=== PATIENT | male | born 1965 | race African-American/Black ===

== ENCOUNTER 2016-05-24 19:52 | Emergency (ER) | payer OTHER ==
--- NOTE | 2016-05-24 20:29 | ERRECORD ---
[facility] EMERGENCY RECORD HPI NAUSEA/VOMITING/DIARRHEA (20:18 BPIC) CHIEF COMPLAINT: Patient presents for evaluation of vomiting. HISTORIAN: History provided by patient, Diabetic patient who has been trying to change his diet since New Year's Day, was eating a piece of chicken and felt like it got stuck on the way down to his stomach. he immediately vomited all of his food. this happened 3 times to him today. he is jeff to tolerate liquids and has no pain or symptoms currently. His girlfriend was concerned that he might have twisted intestines and told him to come to the ER. ROS (20:20 BPIC) CONSTITUTIONAL: Negative constitutional review of systems, Historian denies chills, denies fever. EYES: Negative eye review of systems. ENT: Negative ears, nose, throat review of systems. CARDIOVASCULAR: Negative cardiovascular review of systems, Historian denies chest pain, denies palpitations. RESPIRATORY: Negative respiratory review of systems, Historian denies cough, denies shortness of breath. GI: Negative gastrointestinal review of systems, Historian denies abdominal pain, denies constipation, denies diarrhea. MUSCULOSKELETAL: Negative musculoskeletal review of systems. SKIN: Negative skin review of systems. NEUROLOGIC: Negative neurologic review of systems. ENDOCRINE: Negative endocrine review of systems. HEMO/LYMPHATIC: Normal hematologic/lymphatic system review. PSYCHIATRIC: Negative psychiatric review of systems. NOTES: All other ROS is negative except as listed in HPI. PAST MEDICAL HISTORY MEDICAL HISTORY: Notes: VERIFIED 12-30-15, Past medical history includes history of diabetes, Past medical history includes endocrine disease, hypothyroidism, Past medical history includes history of hyperlipidemia, Past medical history includes history of hypertension. VERIFIED 04/22/14. (20:02 SFRE) MALE SURGICAL HISTORY: VERIFIED 12-30-15, Patient has no surgical history. VERIFIED 04/22/14. (20:02 SFRE) SOCIAL HISTORY: Social History includes VERIFIED 12-30-15, Patient drinks socially, rarely, Patient denies drug use, Patient has no smoking history, Patient drinks socially, rarely, Patient denies drug use, Patient has no smoking history. (20:02 SFRE) NOTES: I have reviewed and agree with the PMH/PSxH/FamHx/SocHx obtained by the nurse. (20:20 BPIC) KNOWN ALLERGIES No Known Drug Allergies No Known Drug Allergy (Unconfirmed) &a-1R&a+25V*p+0X*v6183T*c202B*c15G*c2P*p-0X&a-25V&a+1R Name: Adan Burch : 1965 M51 MedRec: [id number] AcctNum: [id number] Prepared: SunMay 24, 2016 20:33 by Interface Page 1 of 3 pMD [facility] EMERGENCY RECORD CURRENT MEDICATIONS (20:01 SFRE) lisinopril: TABLET : Strength - 20 mg : ORAL Patient Dose: 40 mg once a day. metFORMIN: TABLET : Strength - 1,000 mg : ORAL Patient Dose: 2 times a day. Lipitor: TABLET : Strength - 40 mg : ORAL Patient Dose: 40 once a day. levothyroxine: TABLET : Strength - 100 mcg : ORAL Patient Dose: 125 mcg Oral once a day (in the morning). VITAL SIGNS (19:56 SFRE) VITAL SIGNS: BP: 136/72, Pulse: 77 (Regular), Resp: 18 (Non-Labored), Temp: 97.7 (Tympanic), Pain: 0, O2 sat: 98 on Room Air, Time: 05/24/2016 19:56. PHYSICAL EXAM (20:20 BPIC) CONSTITUTIONAL: Vital signs reviewed, Patient appears non toxic, Patient alert and oriented to person, place and time, Pt is in no apparent distress. HEAD: Head exam included findings of head atraumatic, normocephalic. EYES: Eye exam included findings of eyelids normal to inspection, Pupils equally round and reactive to light, Extraocular muscles intact. ENT: ENT exam normal, Nose exam normal, no nasal deformity, no bleeding from nares, Pharynx exam normal, Mouth exam normal, mucous membranes moist. NECK: Neck exam included findings of normal range of motion, Trachea midline. RESPIRATORY CHEST: Respiratory and chest exam normal, Breath sounds clear, No wheezing, No rales, Chest exam included findings of chest movement symmetrical, Chest expansion equal. CARDIOVASCULAR: Cardiovascular assessment normal, Cardiovascular exam included findings of heart rate regular rate and rhythm, Heart sounds normal. ABDOMEN MALE: Abdominal exam included findings of abdomen nontender, Bowel sounds normal, no mass, no pulsatile masses, no peritoneal signs, no rigidity, no guarding, no rebound. BACK: Back exam included findings of normal inspection, range of motion normal, no costovertebral angle tenderness. UPPER EXTREMITY: Upper extremity exam included findings of inspection normal, Range of motion normal. LOWER EXTREMITY: Lower extremity exam included findings of inspection normal, Range of motion normal. NEURO: Neuro exam findings include patient oriented to person, place and time, Speech normal, no focal motor deficits, no focal &a-1R&a+25V*p+0X*m3520P*c202B*c15G*c2P*p-0X&a-25V&a+1R Name: Adan Burch : 1965 M51 MedRec: [id number] AcctNum: [id number] Prepared: SunMay 24, 2016 20:33 by Interface Page 2 of 3 pMD [facility] EMERGENCY RECORD sensory deficits. SKIN: Skin exam included findings of skin warm, dry, and normal in color. LYMPHATIC: Lymphatic exam normal. PSYCHIATRIC: Psychiatric exam included findings of patient oriented to person place and time, Normal affect. DOCTOR NOTES (20:21 BPIC) TEXT: pt with possible esophageal stricture, however he is tolerating fluids well. pt has agreed to switch to soft mechanical diet and follow up with GI. I discussed the diagnosis with the patient prior to discharge. All questions were answered. There is no indication for admission currently and the patient will follow up with a primary care physician. Any pertinent labs or imaging were reviewed and dicussed with the patient. If any new or emergent symptoms occur, the patient will return to the emergency department. PROBLEM LIST No recorded problems DIAGNOSIS (20:14 BPIC) FINAL: PRIMARY: Nausea with vomiting, ADDITIONAL: possible esophageal stricture. PRESCRIPTION (20:14 BPIC) Zofran ODT: TABLET,DISINTEGRATING : 8 mg : ORAL : Quantity: 8 Unit: mg Route: ORAL Schedule: every 6 hours PRN Dispense: 20 Unit: tab(s) May substitute. Refills: No Refills . NOTES: No Refills. DISPOSITION PATIENT: Disposition Type: Discharge, Disposition: *Discharge Home, Condition: Good. (20:14 BPIC) Patient left the department. (20:26 SFRE) Gallagher: BPRAY=MD Jillian, Marvin SFRE=KRISTINA Parrish, Myrtle &a-1R&a+25V*p+0X*x2989W*c202B*c15G*c2P*p-0X&a-25V&a+1R Name: Adan Burch : 1965 M51 MedRec: [id number] AcctNum: [id number] Prepared: Mino[place] May 24, 2016 20:33 by Interface Page 3 of 3 pMD MTDD
--- NOTE | 2016-05-24 20:36 | PICIS ---
[facility] EMERGENCY RECORD TRIAGE (SunMay 24, 2016 20:00 SFRE) TRIAGE NOTES: REPORTS DIFFICULTY DIGESTING FOOD. STATES HE TAKES 2 BITES AND CANNOT KEEP 3RD BITE DOWN. (SunMay 24, 2016 20:00 SFRE) PATIENT: NAME: Adan Burch, AGE: 51, GENDER: male, : Sun1965, TIME OF GREET: SunMay 24, 2016 19:53, PREFERRED LANGUAGE: Telugu, ETHNICITY: Not or , ECODE BILLING MAP: [facility], SSN: [id number], Zip Code: [address], KG WEIGHT: 109.32, , , PERSON ID: [id number], PCP: MD WARNER IMELDA. (SunMay 24, 2016 20:00 SFRE) PHONE: . (20:22) COMPLAINT: VOMITING. (SunMay 24, 2016 20:00 SFRE) ADMISSION: URGENCY: 4 Non Urgent, ADMISSION SOURCE: Home, TRANSPORT: Walk-in, BED: ED -05. (SunMay 24, 2016 20:00 SFRE) PAIN: No complaint of pain. (20:02 SFRE) SIRS SCORING: Heart Rate 55-109 (0), Temp range 96.8-101.1 (0), respiratory rate 12-24 (0), Mental Status altered: no (0). (20:02 SFRE) TRIAGE SCREENING: Patient denies suicidal ideation, Patient denies presence of domestic violence. (20:02 SFRE) PROVIDERS: TRIAGE NURSE: Myrtle Parrish RN. (SunMay 24, 2016 20:00 SFRE) VITAL SIGNS: BP 136/72, Pulse 77, (Regular), Resp 18, (Non-Labored), Temp 97.7, (Tympanic), Pain 0, O2 Sat 98, on Room Air, Time 05/24/2016 19:56. (19:56 SFRE) PREVIOUS VISIT ALLERGIES: No Known Drug Allergies. (SunMay 24, 2016 20:00 SFRE) No Known Drug Allergies. (20:02 SFRE) KNOWN ALLERGIES No Known Drug Allergies No Known Drug Allergy (Unconfirmed) CURRENT MEDICATIONS (20:01 SFRE) lisinopril: TABLET : Strength - 20 mg : ORAL Patient Dose: 40 mg once a day. metFORMIN: TABLET : Strength - 1,000 mg : ORAL Patient Dose: 2 times a day. Lipitor: TABLET : Strength - 40 mg : ORAL Patient Dose: 40 once a day. levothyroxine: TABLET : Strength - 100 mcg : ORAL Patient Dose: 125 mcg Oral once a day (in the morning). VITAL SIGNS (19:56 SFRE) VITAL SIGNS: BP: 136/72, Pulse: 77 (Regular), Resp: 18 &a-1R&a+25V*p+0X*x2820U*c202B*c15G*c2P*p-0X&a-25V&a+1R Name: Adan Burch : 1965 M51 MedRec: [id number] AcctNum: [id number] Prepared: SunMay 24, 2016 20:40 by Interface Page 1 of 5 pMD [facility] EMERGENCY RECORD (Non-Labored), Temp: 97.7 (Tympanic), Pain: 0, O2 sat: 98 on Room Air, Time: 05/24/2016 19:56. NURSING ASSESSMENT: ABDOMEN (20:06 SFRE) CONSTITUTIONAL: Patient arrives ambulatory, Gait steady, History obtained from patient, Patient appears comfortable, Patient cooperative, Patient alert, Oriented to person, place and time, Skin warm, Skin dry, Skin normal in color, Mucous membranes pink, Mucous membranes moist, Patient is well-groomed, Patient complains of vomiting. PAIN: DENIES PAIN. REPORTS DISCOMFORT ONLY WHEN HE VOMITS, Patient rates pain as 0 out of 10. ABDOMEN: Abdomen assessment findings include abdomen symmetrical, Abdomen soft, Associated with nausea, Associated with vomiting, history of vomiting, vomiting food, no associated diarrhea, Notes: REPORTS HE HAS A DIFFICULT TIME GETTING FOOD TO GO DOWN. "FEELS LIKE IT'S STUCK IN MY STOMACH". GENITOURINARY MALE: no associated urinary complaints. SAFETY: Side rails up, Cart/Stretcher in lowest position, Family at bedside, Call light within reach, Hospital ID band on. NURSING PROCEDURE: DISCHARGE NOTE (20:23 SFRE) DISCHARGE: Patient discharged to home, ambulating without assistance, driving self, accompanied by //partner, Summary of Care printed/ provided, Patient requested and was provided an electronic copy of Discharge Instructions, Discharge instructions given to patient, Simple or moderate discharge teaching performed, by KRISTINA GALDAMEZ, F/U WITH PCP. RX DIRECTED. RETURN TO ED NEEDED FOR NEW/CONCERNING OR WORSENING SYMPTOMS., Prescriptions given and instructions on side effects given, Name of prescription(s) given: Talha COMER person(s) verbalized understanding of discharge instructions and follow-up care. NURSING PROCEDURE: NURSE NOTES (20:08 SFRE) NURSES NOTES: Patient examined by physician. HPI NAUSEA/VOMITING/DIARRHEA (20:18 BPIC) CHIEF COMPLAINT: Patient presents for evaluation of vomiting. HISTORIAN: History provided by patient, Diabetic patient who has been trying to change his diet since New 's Day, was eating a piece of chicken and felt like it got stuck on the way down to his stomach. he immediately vomited all of his food. this happened 3 times to him today. he is jeff to tolerate liquids and has no pain or symptoms currently. His girlfriend was concerned that he might have twisted intestines and told him to come to the ER. ROS (20:20 BPIC) CONSTITUTIONAL: Negative constitutional review of systems, &a-1R&a+25V*p+0X*o8733H*c202B*c15G*c2P*p-0X&a-25V&a+1R Name: Adan Burch : 1965 M51 MedRec: [id number] AcctNum: [id number] Prepared: SunMay 24, 2016 20:40 by Interface Page 2 of 5 pMD [facility] EMERGENCY RECORD Historian denies chills, denies fever. EYES: Negative eye review of systems. ENT: Negative ears, nose, throat review of systems. CARDIOVASCULAR: Negative cardiovascular review of systems, Historian denies chest pain, denies palpitations. RESPIRATORY: Negative respiratory review of systems, Historian denies cough, denies shortness of breath. GI: Negative gastrointestinal review of systems, Historian denies abdominal pain, denies constipation, denies diarrhea. MUSCULOSKELETAL: Negative musculoskeletal review of systems. SKIN: Negative skin review of systems. NEUROLOGIC: Negative neurologic review of systems. ENDOCRINE: Negative endocrine review of systems. HEMO/LYMPHATIC: Normal hematologic/lymphatic system review. PSYCHIATRIC: Negative psychiatric review of systems. NOTES: All other ROS is negative except as listed in HPI. PAST MEDICAL HISTORY MEDICAL HISTORY: Notes: VERIFIED 12-30-15, Past medical history includes history of diabetes, Past medical history includes endocrine disease, hypothyroidism, Past medical history includes history of hyperlipidemia, Past medical history includes history of hypertension. VERIFIED 04/22/14. (20:02 SFRE) MALE SURGICAL HISTORY: VERIFIED 12-30-15, Patient has no surgical history. VERIFIED 04/22/14. (20:02 SFRE) SOCIAL HISTORY: Social History includes VERIFIED 12-30-15, Patient drinks socially, rarely, Patient denies drug use, Patient has no smoking history, Patient drinks socially, rarely, Patient denies drug use, Patient has no smoking history. (20:02 SFRE) NOTES: I have reviewed and agree with the PMH/PSxH/FamHx/SocHx obtained by the nurse. (20:20 BPIC) PHYSICAL EXAM (20:20 BPIC) CONSTITUTIONAL: Vital signs reviewed, Patient appears non toxic, Patient alert and oriented to person, place and time, Pt is in no apparent distress. HEAD: Head exam included findings of head atraumatic, normocephalic. EYES: Eye exam included findings of eyelids normal to inspection, Pupils equally round and reactive to light, Extraocular muscles intact. ENT: ENT exam normal, Nose exam normal, no nasal deformity, no bleeding from nares, Pharynx exam normal, Mouth exam normal, mucous membranes moist. NECK: Neck exam included findings of normal range of motion, Trachea midline. RESPIRATORY CHEST: Respiratory and chest exam normal, Breath sounds clear, No wheezing, No rales, Chest exam included findings of chest movement symmetrical, Chest expansion equal. &a-1R&a+25V*p+0X*a5222K*c202B*c15G*c2P*p-0X&a-25V&a+1R Name: Adan Burch : 1965 M51 MedRec: [id number] AcctNum: [id number] Prepared: SunMay 24, 2016 20:40 by Interface Page 3 of 5 pMD [facility] EMERGENCY RECORD CARDIOVASCULAR: Cardiovascular assessment normal, Cardiovascular exam included findings of heart rate regular rate and rhythm, Heart sounds normal. ABDOMEN MALE: Abdominal exam included findings of abdomen nontender, Bowel sounds normal, no mass, no pulsatile masses, no peritoneal signs, no rigidity, no guarding, no rebound. BACK: Back exam included findings of normal inspection, range of motion normal, no costovertebral angle tenderness. UPPER EXTREMITY: Upper extremity exam included findings of inspection normal, Range of motion normal. LOWER EXTREMITY: Lower extremity exam included findings of inspection normal, Range of motion normal. NEURO: Neuro exam findings include patient oriented to person, place and time, Speech normal, no focal motor deficits, no focal sensory deficits. SKIN: Skin exam included findings of skin warm, dry, and normal in color. LYMPHATIC: Lymphatic exam normal. PSYCHIATRIC: Psychiatric exam included findings of patient oriented to person place and time, Normal affect. EVENTS TRANSFER: Triage to Emergency Main ED -05. (SunMay 24, 2016 20:00 SFRE) Removed from Emergency Main ED -05. (20:26 SFRE) DOCTOR NOTES (20:21 BPIC) TEXT: pt with possible esophageal stricture, however he is tolerating fluids well. pt has agreed to switch to soft mechanical diet and follow up with GI. I discussed the diagnosis with the patient prior to discharge. All questions were answered. There is no indication for admission currently and the patient will follow up with a primary care physician. Any pertinent labs or imaging were reviewed and dicussed with the patient. If any new or emergent symptoms occur, the patient will return to the emergency department. PROBLEM LIST No recorded problems DIAGNOSIS (20:14 BPIC) FINAL: PRIMARY: Nausea with vomiting, ADDITIONAL: possible esophageal stricture. DISPOSITION PATIENT: Disposition Type: Discharge, Disposition: *Discharge Home, Condition: Good. (20:14 BPIC) Patient left the department. (20:26 SFRE) INSTRUCTION (20:15 BPIC) &a-1R&a+25V*p+0X*d6399A*c202B*c15G*c2P*p-0X&a-25V&a+1R Name: Adan Burch : 1965 M51 MedRec: [id number] AcctNum: [id number] Prepared: SunMay 24, 2016 20:40 by Interface Page 4 of 5 pMD [facility] EMERGENCY RECORD DISCHARGE: DIET, VOMITING OR DIARRHEA [6YR-ADULT]. FOLLOWUP: MD ALANA, KAY, [facility], [address] [place], [place] [id number], [phone], MD Bradley, Bruce, Gastroenterology, [address] [place] [address], [phone]. SPECIAL: Please follow up with your physician in the next 2-3 days and with GI as needed for a possible esophageal stricture. Return to the Emergency Room with any worsening of your symptoms or other emergent concerns. Thank you for choosing [facility] Emergency Department for your care today, and God Bless You!. PRESCRIPTION (20:14 BPIC) Zofran ODT: TABLET,DISINTEGRATING : 8 mg : ORAL : Quantity: 8 Unit: mg Route: ORAL Schedule: every 6 hours PRN Dispense: 20 Unit: tab(s) May substitute. Refills: No Refills . NOTES: No Refills. IMAGING (20:24 SFRE) *DISCHARGE INSTRUCTIONS RECEIPT: Image captured from scanner. *SUPPLY CHARGE SHEET: Image captured from scanner. ADMIN DIGITAL SIGNATURE: MD Walsh Bryan. (20:22 BPIC) KRISTINA Parrish, Myrtle. (20:25 SFRE) Gallagher: BPIC=MD Walsh Bryan SFRE=KRISTINA Parrish, Myrtle &a-1R&a+25V*p+0X*g6508X*c202B*c15G*c2P*p-0X&a-25V&a+1R Name: Adan Burch : 1965 M51 MedRec: [id number] AcctNum: [id number] Prepared: SunMay 24, 2016 20:40 by Interface Page 5 of 5 pMD MTDD
== END 2016-05-24 20:23 | disposition home or self-care (01) ==
LOC: MADERS 19:52
DX: R11.2 Nausea with vomiting, unspecified (principal); E03.9 Hypothyroidism, unspecified; E11.9 Type 2 diabetes mellitus without complications; E78.5 Hyperlipidemia, unspecified; I10 Essential (primary) hypertension
CPT/HCPCS: 99283

== ENCOUNTER 2017-04-03 06:05 | Emergency (ER) | payer BC, OTHER ==
[2017-04-03] MEDS ORDERED: Ibuprofen 600 MG TAB ONE (07:14)
== END 2017-04-03 07:15 | disposition home or self-care (01) ==
LOC: MADERS 06:05
DX: M54.2 Cervicalgia (principal); E11.9 Type 2 diabetes mellitus without complications; E03.9 Hypothyroidism, unspecified; E78.5 Hyperlipidemia, unspecified; I10 Essential (primary) hypertension; V40.5XXA Car driver injured in collision with pedestrian or animal in traffic accident, initial encounter
CPT/HCPCS: 99283

== ENCOUNTER 2018-06-26 01:54 | Emergency (ER) | payer OTHER ==
[2018-06-26] MEDS ORDERED: Aspirin Chewable 81 MG TAB ONE (02:20)
[2018-06-26] MEDS ORDERED: Nitroglycerin 2% Ointment 1 INCH/1 GM Packet ONE (02:20)
[2018-06-26 02:32] LABS: #Basophils 0.1 thou/uL (0.0-0.2); #Eosinphils 0.5 thou/uL (0.0-0.7); #Lymphocytes 3.4 thou/uL (1.20-3.40); #Monocytes 0.6 thou/uL (0.11-0.59); #Neutrophils 4.3 thou/uL (1.40-6.50); %Eosinophils 5.9 % (0.0-10.0); %Lymphocytes 38.2 % (21.0-51.0); %Monocytes 6.5 % (0.0-10.0); %Neutrophils 48.5 % (42.0-75.0); Hemoglobin 11.4 g/dL (14.0-18.0); Mean Corpuscular HGB CONC 30.6 g/dL (32.0-36.0); Mean Corpuscular Hemoglobin 25.2 pg (27.0-31.0); Mean Corpuscular Volume 82.5 fL (78.0-98.0); Mean Platelet Volume 7.8 fL (7.4-10.4); Platelet Count 272 thou/uL (130-400); RBC Distribution Width 12.5 % (11.5-14.5); Red Blood Cell (RBC) Count 4.52 mill/uL (4.70-6.10); White Blood Cell (WBC) Count 8.8 thou/uL (4.8-10.8)
[2018-06-26 03:00] LABS: ALT (SGPT) 24 U/L (8-55); AST (SGOT) 17 U/L (5-34); Albumin 4.4 g/dL (3.5-5.0); Alkaline Phosphatase 68 U/L (40-150); Anion Gap 16 mmol/L (10-20); BUN (Urea Nitrogen) 26 mg/dL (8.4-25.7); Bilirubin, Total 0.4 mg/dL (0.2-1.2); Calc. Creatinine Clearance 0 mL/min (70-130); Calcium 9.6 mg/dL (7.8-10.44); Carbon Dioxide 21 mmol/L (22-29); Chloride 109 mmol/L (98-107); Estimated GFR-MDRD Greater than 90; Globulin 2.8 g/dL (2.4-3.5); Glucose 124 mg/dL (70-105); Protein, Total 7.2 g/dL (6.0-8.3); Sodium 142 mmol/L (136-145)
--- NOTE | 2018-06-26 07:55 | RAD ---
CHEST TWO VIEWS: History: Chest pain. Comparison: 08-03-15 FINDINGS: Cardiac silhouette and pulmonary vasculature are upper limits of normal. Mediastinum is midline. No c onfluent airspace consolidation, pneumothorax, or pleural fluid. monitor technician leads overlie the ch est. IMPRESSION: No active cardiopulmonary abnormalities are demonstrated. POS: [facility]
== END 2018-06-26 04:00 | disposition short-term general hospital (02) ==
LOC: MADERS 01:54
DX: R07.9 Chest pain, unspecified (principal); E11.9 Type 2 diabetes mellitus without complications; E03.9 Hypothyroidism, unspecified; E78.5 Hyperlipidemia, unspecified; I10 Essential (primary) hypertension; I25.10 Atherosclerotic heart disease of native coronary artery without angina pectoris; Z79.84 Long term (current) use of oral hypoglycemic drugs; Z79.899 Other long term (current) drug therapy
CPT/HCPCS: 71046; 80053; 83880; 84484; 85025; 93005

== ENCOUNTER 2020-09-13 15:20 | Emergency (ER) | payer MEDICAID, SELFPAY ==
[2020-09-13] MEDS ORDERED: HYDROcodone/Acetaminophen 5/325 mg Tablet ONE (17:45)
== END 2020-09-13 17:49 | disposition home or self-care (01) ==
LOC: MADERS 15:20
DX: S13.9XXA Sprain of joints and ligaments of unspecified parts of neck, initial encounter (principal); S29.012A Strain of muscle and tendon of back wall of thorax, initial encounter; E11.9 Type 2 diabetes mellitus without complications; E03.9 Hypothyroidism, unspecified; E78.5 Hyperlipidemia, unspecified; I11.0 Hypertensive heart disease with heart failure; I50.9 Heart failure, unspecified; Z79.84 Long term (current) use of oral hypoglycemic drugs; Z79.899 Other long term (current) drug therapy; V89.2XXA Person injured in unspecified motor-vehicle accident, traffic, initial encounter
CPT/HCPCS: 71045; 72072; 72125

== ENCOUNTER 2020-12-01 23:54 | Emergency (ER) | payer MEDICAID, OTHER | END 2020-12-02 02:00 | disposition home or self-care (01) | LOC: MADERS 23:54 | DX: S00.03XA Contusion of scalp, initial encounter (principal); I25.10 Atherosclerotic heart disease of native coronary artery without angina pectoris; I11.0 Hypertensive heart disease with heart failure; I50.9 Heart failure, unspecified; E11.9 Type 2 diabetes mellitus without complications; E03.9 Hypothyroidism, unspecified; E78.5 Hyperlipidemia, unspecified; W01.0XXA Fall on same level from slipping, tripping and stumbling without subsequent striking against object, initial encounter | CPT/HCPCS: 70450; 72125 ==

== ENCOUNTER 2021-04-24 23:12 | Emergency (ER) | payer MEDICAID ==
[2021-04-24] MEDS ORDERED: Ondansetron PF 4 MG/2 ML Vial ONE (23:40)
[2021-04-24] MEDS ORDERED: Loperamide HCl 2 MG CAP ONE (23:40)
[2021-04-24] MEDS ORDERED: Sodium Chloride 0.9% 1,000 ML ONE (23:40)
== END 2021-04-25 01:00 | disposition home or self-care (01) ==
LOC: MADERS 23:12
DX: K52.9 Noninfective gastroenteritis and colitis, unspecified (principal); I11.0 Hypertensive heart disease with heart failure; I50.9 Heart failure, unspecified; E11.9 Type 2 diabetes mellitus without complications; E03.9 Hypothyroidism, unspecified; E78.5 Hyperlipidemia, unspecified; Z79.899 Other long term (current) drug therapy
CPT/HCPCS: 96374; J2405; J7050